=== PATIENT | female | born 1950 | race Caucasian/White ===

== ENCOUNTER 2017-02-04 23:03 | Inpatient (IN) | payer MEDICARE, MEDICAID ==
[~2017-02-04] VITALS: Ht 157.5 cm; Wt 65.8 kg
[~2017-02-04 23:03] MED LIST: AMLO-511 PO; DIVA500T35 PO; OLAN7.5T2 PO
[2017-02-04 23:43] LABS: BASOPHILS # (AUTO) 0.05 K/uL (0.00-0.20); BASOPHILS % (AUTO) 0.7 % (0.0-2.0); EOSINOPHILS # (AUTO) 0.11 K/uL (0.00-0.70); EOSINOPHILS % (AUTO) 1.51 % (1.0-6.0); HEMATOCRIT 38.9 % (36-46); HEMOGLOBIN 12.8 g/dL (12.0-16.0); LYMPHOCYTES # (AUTO) 1.8 K/uL (1.0-4.8); LYMPHOCYTES % (AUTO) 26.3 % (22.0-44.0); MEAN CORPUSCULAR HEMOGLOBIN 29.2 pg (26.0-34.0); MEAN CORPUSCULAR VOLUME 89 fL (80-100); MONOCYTES # (AUTO) 0.6 K/uL (0.1-1.0); MONOCYTES % (AUTO) 8.4 % (2.0-9.0); NEUTROPHILS # (AUTO) 4.4 K/uL (1.8-7.7); NEUTROPHILS % (AUTO) 63.2 % (40.0-70.0); PLATELET COUNT (AUTO) 234 K/uL (150-450); RED BLOOD CELL COUNT(AUTO) 4.39 MIL/uL (4.00-5.20); RED CELL DISTRIBUTION WIDTH 13.7 % (11.5-14.5)
[2017-02-04 23:53] LABS: ANION GAP 11 mmol/L (8-16); CALCIUM, TOTAL 9.3 mg/dL (8.8-10.5); CARBON DIOXIDE 24 mmol/L (22-29); CHLORIDE 103 mmol/L (98-107); CREATININE 1.17 mg/dL (0.60-1.30); GLOMERULAR FILTR. RATE CALC 40 mL/min (>60); POTASSIUM 3.3 mmol/L (3.5-5.1); SODIUM SERUM 138 mmol/L (136-145); UREA NITROGEN, BLOOD 26 mg/dL (7-18)
[2017-02-05] LABS: ALANINE AMINOTRANSFERASE 16 U/L (12-78); ALBUMIN 3.8 g/dL (3.4-5.0); ASPARTATE AMINOTRANSFERASE 16 U/L (15-37); BILIRUBIN,TOTAL 0.3 mg/dL (0.1-1.0); TOTAL PROTEIN, SERUM 6.9 g/dL (6.4-8.2)
[2017-02-05] MEDS ORDERED: HALOPERIDOL LACTATE 5 MG/ML VIAL IM ONE (00:30)
[2017-02-05] MEDS ORDERED: LORazepam 2 MG/ML VIAL IM ONE (00:30)
[2017-02-05] MEDS ORDERED: POTASSIUM CHLORIDE 10% 40 MEQ/30 ML LIQUID UDCUP PO ONE (02:00)
[2017-02-05 02:47] LABS: APPEARANCE,URINE TURBID (CLEAR); GLUCOSE, URINE (UA) NEGATIVE (NEGATIVE); KETONES,URINE TRACE mg/dL (NEGATIVE); LEUKOCYTE ESTERASE ,URINE LARGE (NEGATIVE); OCCULT BLOOD,URINE MODERATE (NEGATIVE); PH,URINE 5.5 (5.0-8.0); PROTEIN,URINE POS 1+ (NEGATIVE)
[2017-02-05] MEDS ORDERED: ZOLPIDEM TARTRATE 10 MG TABLET PO PRN (03:00)
[2017-02-05] MEDS ORDERED: LORazepam 1 MG TABLET PO PRN (03:00)
[2017-02-05] MEDS ORDERED: CEPHALEXIN MONOHYDRATE 500 MG CAPSULE PO ONE (03:00)
[2017-02-05] MEDS ORDERED: HALOPERIDOL 5 MG TABLET PO PRN (03:00)
[2017-02-05 03:16] LABS: RBC,URINE 0-2 /HPF (0-2); SQUAMOUS EPITHELIAL CELL,UR Few /LPF (None Seen); WBC,URINE 51-100 /HPF (0-5)
[2017-02-05 03:57] VITALS: BP 128/56
[2017-02-05] MEDS ORDERED: PETROLATUM,WHITE 71 GM JELLY TP PRN (06:15)
[2017-02-05] MEDS ORDERED: MAG HYDROX/AL HYDROX/SIMETH ES 30 ML SUSPENSION UDCUP PO PRN (06:15)
[2017-02-05] MEDS ORDERED: BACITRACIN 28.4 GM OINTMENT TP PRN (06:15)
[2017-02-05] MEDS ORDERED: MAGNESIUM HYDROXIDE SUSPENSION 30 ML UDCUP PO PRN (06:15)
[2017-02-05] MEDS ORDERED: BENZOCAINE/MENTHOL LOZENGE MM PRN (06:15)
[2017-02-05] MEDS ORDERED: ACETAMINOPHEN 325 MG TABLET PO PRN (06:15)
[2017-02-05] MEDS ORDERED: ALBUTEROL SULFATE HFA 90 MCG/PUFF 8 GM INHALER IH PRN (06:15)
[2017-02-05] MEDS ORDERED: CloNIDine HCL 0.1 MG TABLET PO PRN (06:15)
[2017-02-05] MEDS ORDERED: LOPERAMIDE HCL 2 MG CAPSULE PO PRN (06:15)
[2017-02-05] MEDS ORDERED: ONDANSETRON HCL 4 MG TABLET PO PRN (06:15)
[2017-02-05] MEDS ORDERED: IBUPROFEN 600 MG TABLET PO PRN (06:15)
[2017-02-05 08:15] VITALS: BP 135/60
[2017-02-05] MEDS: LISINOPRIL 5 MG TABLET PO SCH (08:51)
[2017-02-05] MEDS: DIVALPROEX SODIUM 500 MG DR TABLET PO SCH (16:02)
[2017-02-05 16:09] VITALS: BP 107/67
[2017-02-05] MEDS: OLANZapine 7.5 MG TABLET PO SCH (20:01)
[2017-02-06 05:44] VITALS: BP 125/72
[2017-02-06 06:23] LABS: BASOPHILS # (AUTO) 0.05 K/uL (0.00-0.20); BASOPHILS % (AUTO) 0.6 % (0.0-2.0); EOSINOPHILS # (AUTO) 0.24 K/uL (0.00-0.70); EOSINOPHILS % (AUTO) 3.24 % (1.0-6.0); HEMATOCRIT 37.9 % (36-46); HEMOGLOBIN 12.3 g/dL (12.0-16.0); LYMPHOCYTES # (AUTO) 3.3 K/uL (1.0-4.8); LYMPHOCYTES % (AUTO) 43.7 % (22.0-44.0); MEAN CORPUSCULAR HEMOGLOBIN 29.3 pg (26.0-34.0); MEAN CORPUSCULAR HGB CONC 32.6 G/dL (31.0-37.0); MEAN CORPUSCULAR VOLUME 90 fL (80-100); MONOCYTES # (AUTO) 0.6 K/uL (0.1-1.0); MONOCYTES % (AUTO) 7.7 % (2.0-9.0); NEUTROPHILS # (AUTO) 3.4 K/uL (1.8-7.7); NEUTROPHILS % (AUTO) 44.8 % (40.0-70.0); PLATELET COUNT (AUTO) 207 K/uL (150-450); RED BLOOD CELL COUNT(AUTO) 4.21 MIL/uL (4.00-5.20); WHITE BLOOD COUNT (AUTO) 7.5 K/uL (4.5-11.0)
[2017-02-06 06:33] LABS: ALANINE AMINOTRANSFERASE 13 U/L (12-78); ALBUMIN 2.9 g/dL (3.4-5.0); ANION GAP 8 mmol/L (8-16); ASPARTATE AMINOTRANSFERASE 16 U/L (15-37); BILIRUBIN,TOTAL 0.3 mg/dL (0.1-1.0); CALCIUM, TOTAL 8.6 mg/dL (8.8-10.5); CARBON DIOXIDE 24 mmol/L (22-29); CHLORIDE 108 mmol/L (98-107); CREATININE 0.89 mg/dL (0.60-1.30); GLOMERULAR FILTR. RATE CALC > 60 mL/min (>60); POTASSIUM 3.9 mmol/L (3.5-5.1); SODIUM SERUM 140 mmol/L (136-145); THYROID STIMULATING HORMONE 0.53 uIU/mL (0.36-3.74); TOTAL PROTEIN, SERUM 5.8 g/dL (6.4-8.2); UREA NITROGEN, BLOOD 19 mg/dL (7-18)
[2017-02-06 06:43] LABS: HEMOGLOBIN A1C 6.1 % (4.5-6.2)
[2017-02-06 08:45] VITALS: BP 123/77
[2017-02-06] MEDS: CEPHALEXIN MONOHYDRATE 500 MG CAPSULE PO SCH ×2 (09:14→16:46)
[2017-02-06] MEDS: LISINOPRIL 5 MG TABLET PO SCH (09:14)
[2017-02-06] MEDS: DIVALPROEX SODIUM 500 MG DR TABLET PO SCH ×2 (09:14→16:46)
[2017-02-06 16:44] VITALS: BP 108/57
[2017-02-06] MEDS: OLANZapine 7.5 MG TABLET PO SCH (20:23)
[2017-02-07 07:42] LABS: HEPATITIS Bs ANTIGEN SCREEN P Negative (Negative); HEPATITIS C AB SCREEN <0.1 s/co ratio (0.0-0.9)
[2017-02-07] MEDS: DIVALPROEX SODIUM 500 MG DR TABLET PO SCH ×2 (08:30→16:29)
[2017-02-07] MEDS: CEPHALEXIN MONOHYDRATE 500 MG CAPSULE PO SCH ×2 (08:30→16:30)
[2017-02-07] MEDS: LISINOPRIL 5 MG TABLET PO SCH (08:30)
[2017-02-07 09:04] VITALS: BP 155/87
[2017-02-07 17:35] VITALS: BP 141/81
[2017-02-07] MEDS: OLANZapine 7.5 MG TABLET PO SCH (20:39)
[2017-02-08 08:30] VITALS: BP 168/88
[2017-02-08] MEDS: CEPHALEXIN MONOHYDRATE 500 MG CAPSULE PO SCH ×2 (09:37→16:34)
[2017-02-08] MEDS: LISINOPRIL 5 MG TABLET PO SCH (09:37)
[2017-02-08] MEDS: DIVALPROEX SODIUM 500 MG DR TABLET PO SCH ×2 (09:37→16:34)
[2017-02-08 16:53] VITALS: BP 147/79
[2017-02-08] MEDS: OLANZapine 7.5 MG TABLET PO SCH (20:45)
[2017-02-09 08:15] VITALS: BP 153/92
[2017-02-09] MEDS: LISINOPRIL 5 MG TABLET PO SCH (08:18)
[2017-02-09] MEDS: CEPHALEXIN MONOHYDRATE 500 MG CAPSULE PO SCH ×2 (08:18→17:30)
[2017-02-09] MEDS: DIVALPROEX SODIUM 500 MG DR TABLET PO SCH ×2 (08:18→17:30)
[2017-02-09 16:02] VITALS: BP 106/61
[2017-02-09] MEDS: OLANZapine 7.5 MG TABLET PO SCH (21:52)
[2017-02-10 08:15] VITALS: BP 159/95
[2017-02-10] MEDS: LISINOPRIL 5 MG TABLET PO SCH (08:55)
[2017-02-10] MEDS: CEPHALEXIN MONOHYDRATE 500 MG CAPSULE PO SCH (08:55)
[2017-02-10] MEDS: DIVALPROEX SODIUM 500 MG DR TABLET PO SCH (08:55)
[2017-02-10] MEDS ORDERED: DIVA500T35 PO (14:11)
[2017-02-10] MEDS ORDERED: OLAN7.5T2 PO (14:12)
[2017-02-10] MEDS ORDERED: CEPH500 PO (14:13)
[2017-02-10] MEDS ORDERED: LISI-660 PO (14:13)
[2017-04-25] MEDS ORDERED: LITH300C3 PO (18:09)
== END 2017-02-10 15:30 | disposition home or self-care (01) | DRG 885 ==
LOC: EDBD → EMS 23:07 → 3EX 02-05 03:27
PROVIDERS: ADMIT Psychiatry & Neurology Psychiatry; ATTEND Psychiatry & Neurology Psychiatry
DX: F20.0 Paranoid schizophrenia (principal); N17.9 Acute kidney failure, unspecified; N39.0 Urinary tract infection, site not specified; E87.6 Hypokalemia; G47.00 Insomnia, unspecified; I10 Essential (primary) hypertension; K59.00 Constipation, unspecified; Z79.899 Other long term (current) drug therapy; Z78.1 Physical restraint status
CPT/HCPCS: 80074; 82306; 83036; 84443; 86592; 87086; 96372; 99285; G0480; J1630; J2060

== ENCOUNTER 2017-02-18 19:15 | Inpatient (IN) | payer MEDICARE, MEDICAID ==
[~2017-02-18] VITALS: Ht 160 cm; Wt 69.3 kg
[~2017-02-18 19:15] MED LIST changes: +CEPH500 PO; +LISI-660 PO
[2017-02-18] MEDS ORDERED: DiphenhydrAMINE HCL 50 MG/ML VIAL IM ONE (20:00)
[2017-02-18] MEDS ORDERED: LORazepam 2 MG/ML VIAL IM ONE (20:00)
[2017-02-18] MEDS ORDERED: HALOPERIDOL LACTATE 5 MG/ML VIAL IM ONE (20:00)
[2017-02-18 20:06] LABS: BASOPHILS # (AUTO) 0.06 K/uL (0.00-0.20); BASOPHILS % (AUTO) 0.6 % (0.0-2.0); EOSINOPHILS # (AUTO) 0.05 K/uL (0.00-0.70); EOSINOPHILS % (AUTO) 0.47 % (1.0-6.0); HEMATOCRIT 39.4 % (36-46); HEMOGLOBIN 12.8 g/dL (12.0-16.0); LYMPHOCYTES # (AUTO) 1.7 K/uL (1.0-4.8); LYMPHOCYTES % (AUTO) 15.7 % (22.0-44.0); MEAN CORPUSCULAR HEMOGLOBIN 28.9 pg (26.0-34.0); MEAN CORPUSCULAR HGB CONC 32.5 G/dL (31.0-37.0); MEAN CORPUSCULAR VOLUME 89 fL (80-100); MONOCYTES # (AUTO) 0.9 K/uL (0.1-1.0); MONOCYTES % (AUTO) 8.3 % (2.0-9.0); PLATELET COUNT (AUTO) 281 K/uL (150-450); RED BLOOD CELL COUNT(AUTO) 4.43 MIL/uL (4.00-5.20); RED CELL DISTRIBUTION WIDTH 14.6 % (11.5-14.5); WHITE BLOOD COUNT (AUTO) 10.7 K/uL (4.5-11.0)
[2017-02-18] MEDS ORDERED: ZOLPIDEM TARTRATE 10 MG TABLET PO PRN (20:15)
[2017-02-18] MEDS ORDERED: LORazepam 2 MG TABLET PO PRN (20:15)
[2017-02-18] MEDS ORDERED: HALOPERIDOL 5 MG TABLET PO PRN (20:15)
[2017-02-18 20:22] LABS: ANION GAP 12 mmol/L (8-16); CALCIUM, TOTAL 9.6 mg/dL (8.8-10.5); CARBON DIOXIDE 24 mmol/L (22-29); CHLORIDE 104 mmol/L (98-107); CREATININE 1.07 mg/dL (0.60-1.30); GLOMERULAR FILTR. RATE CALC 51 mL/min (>60); SODIUM SERUM 140 mmol/L (136-145); UREA NITROGEN, BLOOD 13 mg/dL (7-18)
[2017-02-18 20:28] LABS: ALANINE AMINOTRANSFERASE 16 U/L (12-78); ALBUMIN 3.9 g/dL (3.4-5.0); ASPARTATE AMINOTRANSFERASE 25 U/L (15-37); BILIRUBIN,TOTAL 0.3 mg/dL (0.1-1.0); TOTAL PROTEIN, SERUM 7.7 g/dL (6.4-8.2)
[2017-02-19 00:57] VITALS: BP 117/63
[2017-02-19] MEDS ORDERED: PNEUMOCOCCAL VACCINE POLYVALENT 0.5 ML VIAL [PPSV23] IM ONE (01:00)
[2017-02-19] MEDS ORDERED: INFLUENZA VIRUS VACCINE QVS 2017-18 (3YR+)/PF 60 MCG/0.5 ML SYRINGE IM ONE (01:00)
[2017-02-19 08:31] VITALS: BP 144/80
[2017-02-19] MEDS ORDERED: ACETAMINOPHEN 325 MG TABLET PO PRN (08:45)
[2017-02-19] MEDS ORDERED: ONDANSETRON HCL 4 MG TABLET PO PRN (08:45)
[2017-02-19] MEDS ORDERED: BENZOCAINE/MENTHOL LOZENGE MM PRN (08:45)
[2017-02-19] MEDS ORDERED: CloNIDine HCL 0.1 MG TABLET PO PRN (08:45)
[2017-02-19] MEDS ORDERED: ALBUTEROL SULFATE HFA 90 MCG/PUFF 8 GM INHALER IH PRN (08:45)
[2017-02-19] MEDS ORDERED: BACITRACIN 28.4 GM OINTMENT TP PRN (08:45)
[2017-02-19] MEDS ORDERED: MAGNESIUM HYDROXIDE SUSPENSION 30 ML UDCUP PO PRN (08:45)
[2017-02-19] MEDS ORDERED: LOPERAMIDE HCL 2 MG CAPSULE PO PRN (08:45)
[2017-02-19] MEDS ORDERED: PETROLATUM,WHITE 71 GM JELLY TP PRN (08:45)
[2017-02-19] MEDS ORDERED: MAG HYDROX/AL HYDROX/SIMETH ES 30 ML SUSPENSION UDCUP PO PRN (08:45)
[2017-02-19] MEDS ORDERED: IBUPROFEN 600 MG TABLET PO PRN (08:45)
[2017-02-19] MEDS ORDERED: LISINOPRIL 5 MG TABLET PO SCH (09:00)
[2017-02-19] MEDS: LISINOPRIL 10 MG TABLET PO SCH (09:06)
[2017-02-19] MEDS ORDERED: DIVALPROEX SODIUM 500 MG DR TABLET PO ONE (12:15)
[2017-02-19 16:14] VITALS: BP 142/79
[2017-02-19] MEDS: DIVALPROEX SODIUM 500 MG DR TABLET PO SCH (16:23)
[2017-02-19] MEDS: OLANZapine 10 MG TABLET PO SCH (20:20)
[2017-02-19] MEDS ORDERED: OLANZapine 7.5 MG TABLET PO SCH (21:00)
[2017-02-20 02:13] VITALS: BP 123/70
[2017-02-20] MEDS: DIVALPROEX SODIUM 500 MG DR TABLET PO SCH ×2 (08:16→16:43)
[2017-02-20] MEDS: LISINOPRIL 10 MG TABLET PO SCH (08:16)
[2017-02-20 08:52] VITALS: BP 121/82
[2017-02-20 17:39] VITALS: BP 124/71
[2017-02-20] MEDS: OLANZapine 10 MG TABLET PO SCH (21:29)
[2017-02-21 06:31] VITALS: BP 140/80
[2017-02-21 08:06] VITALS: BP 125/74
[2017-02-21] MEDS: DIVALPROEX SODIUM 500 MG DR TABLET PO SCH ×2 (08:09→16:35)
[2017-02-21] MEDS: LISINOPRIL 10 MG TABLET PO SCH (08:09)
[2017-02-21 16:11] VITALS: BP 120/62
[2017-02-21] MEDS: OLANZapine 10 MG TABLET PO SCH (20:32)
[2017-02-22 06:18] VITALS: BP 129/74
[2017-02-22 08:17] VITALS: BP 158/92
[2017-02-22] MEDS: LISINOPRIL 10 MG TABLET PO SCH (08:37)
[2017-02-22] MEDS: DIVALPROEX SODIUM 500 MG DR TABLET PO SCH (08:37)
[2017-02-22 10:00] VITALS: BP 132/84
[2017-04-25] MEDS ORDERED: LITH300C3 PO (18:09)
== END 2017-02-22 15:05 | disposition home or self-care (01) | DRG 885 ==
LOC: EDBD 19:16 → EMS 19:16 → B2X 20:30
PROVIDERS: ADMIT Psychiatry & Neurology Psychiatry; ATTEND Psychiatry & Neurology Psychiatry
DX: F20.0 Paranoid schizophrenia (principal); Z91.14 Patient's other noncompliance with medication regimen; G47.00 Insomnia, unspecified; I10 Essential (primary) hypertension; K21.9 Gastro-esophageal reflux disease without esophagitis; K59.00 Constipation, unspecified; Z79.899 Other long term (current) drug therapy; Z88.1 Allergy status to other antibiotic agents; Z87.891 Personal history of nicotine dependence; Z28.21 Immunization not carried out because of patient refusal
CPT/HCPCS: 87081; 90471; 96372; 99285; G0480; J1200; J1630; J2060